=== PATIENT | male | born 1980 | race Hispanic/Latino ===

== ENCOUNTER 2018-05-27 11:19 | Emergency (ER) | payer OTHER ==
[2018-05-27 12:11] VITALS: BP 136/82; PULSE 68; RESP 20; TEMP 97.9; O2SAT 99
[2018-05-27] MEDS ORDERED: Amoxicillin-Clav 875-125 mg Tab PO STA (12:50)
--- NOTE | 2018-05-27 12:51 | ED PDOC ---
HPI: Skin/Bite Injury Time Seen by Provider: 05/27/18 12:23 Chief Complaint (Nursing): Bite Chief Complaint (Provider): Bite History Per: Patient Additional Complaint(s): 38 yo male, no PMH, presents to ED for evaluation of dog bite. Pt bit by a dog to rt. pinky today. no active bleeding. T.dap is UTD. No complaints of pain, no limitations of motion. 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 for rabies Past Medical History Reviewed: Nursing Documentation, Vital Signs Vital Signs: Last Vital Signs Temp 97.9 F 05/27/18 12:08 Pulse 68 05/27/18 12:08 Resp 20 05/27/18 12:08 BP 136/82 05/27/18 12:08 Pulse Ox 99 05/27/18 12:08 - Medical History PMH: No Chronic Diseases - Surgical History Surgical History: No Surg Hx - Family History Family History: States: No Known Family Hx - Living Arrangements Living Arrangements: With Family - Home Medications Home Medications: Ambulatory Orders Medication Instructions Recorded Amoxicillin/Clavulanate [Augmentin 1 tab PO BID #14 tab 05/27/18 875 MG-125 MG] Ibuprofen [Motrin] 600 mg PO Q6 #20 tab 05/27/18 - Allergies Allergies/Adverse Reactions: Allergies Allergy/AdvReac Type Severity Reaction Status Date / Time No Known Allergies Allergy Verified 05/27/18 12:08 Review of Systems ROS Statement: Except As Marked, All Systems Reviewed And Found Negative Skin: Positive for: Other (bite) Physical Exam - Reviewed Nursing Documentation Reviewed: Yes Vital Signs Reviewed: Yes - Physical Exam Appears: Positive for: Well, Non-toxic, No Acute Distress Head Exam: Positive for: ATRAUMATIC, NORMAL INSPECTION, NORMOCEPHALIC Skin: Positive for: Normal Color, Warm, DRY Eye Exam: Positive for: EOMI, Normal appearance, PERRL ENT: Positive for: Normal ENT Inspection Neck: Positive for: Normal, Painless ROM Cardiovascular/Chest: Positive for: Regular Rate, Rhythm Respiratory: Positive for: CNT, Normal Breath Sounds Gastrointestinal/Abdominal: Positive for: Normal Exam, Soft Back: Positive for: Normal Inspection Extremity: Positive for: Normal ROM Neurologic/Psych: Positive for: Alert, Oriented Comments: (+) superficial laceration to webspace between 4-th digits on right hand. (+) surrounding ecchymosis. no edema or erythema no active bleed - ECG O2 Sat by Pulse Oximetry: 99 Medical Decision Making Medical Decision Making: Pt medicated with Augmentin PO XR: NAd, as read by EDER wound cleaned and dressed by adjusto writer operator iftikhar MACHADO wound care discussed Disposition - Clinical Impression Clinical Impression: Animal bite wound - Disposition Referrals: FAMILY PROVIDER,NO [Primary Care Provider] - Disposition: Routine/Home Disposition Time: 16:20 Condition: STABLE Prescriptions: Amoxicillin/Clavulanate [Augmentin 875 MG-125 MG] 1 tab PO BID #14 tab Ibuprofen [Motrin] 600 mg PO Q6 #20 tab Instructions: Animal Bites (DC) Forms: [employer] (Lithuanian)
[2018-05-27] MEDS ORDERED: Amoxicillin-Clav 875-125 mg Tab PO ONE (13:12)
--- NOTE | 2018-05-27 14:14 | RAD ---
Date of service: 05/27/2018 PROCEDURE: Right small finger radiographs. HISTORY: dog bite COMPARISON: None. TECHNIQUE: AP radiograph of the right hand, as well as spot oblique and lateral images of small finger were obtained. FINDINGS: RIGHT SMALL FINGER: No acute fracture. JOINTS: Normal. SOFT TISSUES: Soft tissue defect compatible with provided clinical history of dog bite. OTHER FINDINGS: None. IMPRESSION: Soft tissue defect without evidence of osseous injury.
== END 2018-05-27 13:15 | disposition home or self-care (01) ==
LOC: H.ER 11:19 → SUPCPDRO 11:19 → H.ER 13:15
DX: S60.416A Abrasion of right little finger, initial encounter (principal); W54.0XXA Bitten by dog, initial encounter; Y92.89 Other specified places as the place of occurrence of the external cause